=== PATIENT | female | born 1980 | race Caucasian/White ===

== ENCOUNTER → 2021-08-16 | Outpatient (CLI) | payer SELFPAY | LOC: LAB 14:58 | DX: O23.12 Infections of bladder in pregnancy, second trimester (principal); Z3A.00 Weeks of gestation of pregnancy not specified ==

== ENCOUNTER → 2021-08-24 | Outpatient (CLI) | payer SELFPAY ==
[2021-08-24 17:08] LABS: URINE WBC 0 /hpf (0-3)
[2021-08-24 17:30] LABS: URINE APPEARANCE CLEAR; URINE BILIRUBIN NEGATIVE (NEGATIVE); URINE BLOOD NEGATIVE (NEGATIVE); URINE COLOR YELLOW; URINE GLUCOSE NEGATIVE (NEGATIVE); URINE KETONE NEGATIVE (NEGATIVE); URINE LEUKOCYTE ESTERASE NEGATIVE (NEGATIVE); URINE NITRATE NEGATIVE (NEGATIVE); URINE PROTEIN(semi-quant) TRACE (NEGATIVE); URINE UROBILINOGEN NORMAL (NORMAL)
[2021-08-24 17:59] LABS: CLUE CELLS NOT OBSERVED (Not Observd)
== END ==
LOC: LAB 16:27
PROVIDERS: Nurse Practitioner Family
DX: R35.0 Frequency of micturition (principal); R10.30 Lower abdominal pain, unspecified; R30.9 Painful micturition, unspecified
CPT/HCPCS: Q0111